=== PATIENT | male | born 1995 | race Caucasian/White ===

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

== ENCOUNTER 2017-02-26 16:48 | Emergency (ER) | payer OTHER ==
--- NOTE | 2017-02-26 17:24 | UC ---
Cardiac HPI - HPI Summary HPI Summary: Approx 4.5 hours ago bent over to clean something up, reached with his R arm, and stool up to feel sharp pain on R front chest. Pain mostly with deep breaths and certain arm/trunk movements. Denies any recent immobilization, traveling, no hx clotting disorders, denies fhx clotting disorders, no leg pain, not currently SOB. 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 Seen by Provider: 02/26/17 17:05 Hx Obtained From: Patient Onset/Duration: Sudden Onset Timing: Constant Initial Severity: Mild Current Severity: Mild Chest Pain Location: Mid Sternal Character: Tightness, Sharp/Stabbing - with palpation Aggravating: Position, Medications, Deep Breaths Alleviating: Rest Associated Signs & Symptoms: Negative: Vision Changes, Headaches, Numbness, Tingling, SOB, Swelling, Fever, Nausea/Vomiting, Palpitations, Cough, Hemoptysis - Allergy/Home Medications Allergies/Adverse Reactions: Allergies Allergy/AdvReac Type Severity Reaction Status Date / Time No Known Allergies Allergy Verified 12/29/16 09:52 PMH/Surg Hx/FS Hx/Imm Hx Cardiovascular History: Hypertension - Surgical History Surgical History: Yes Surgery Procedure, Year, and Place: T&A - Family History Known Family History: Positive: None, Other - FMH of sunburn Family History: no reported medical issues, no fhx clotting d/o - Social History Alcohol Use: None Substance Use Type: None Smoking Status (MU): Never Smoked Tobacco - Immunization History Most Recent Influenza Vaccination: 2012 Vaccination Up to Date: Yes Review of Systems Constitutional: Negative Skin: Negative Eyes: Negative ENT: Negative Respiratory: Negative Cardiovascular: Chest Pain Gastrointestinal: Negative Genitourinary: Negative Motor: Negative Neurovascular: Negative Musculoskeletal: Negative Neurological: Negative Psychological: Negative All Other Systems Reviewed And Are Negative: Yes Physical Exam Triage Information Reviewed: Yes Appearance: Well-Appearing, No Pain Distress, Obese Vital Signs: Initial Vital Signs Temp 99.7 F 02/26/17 16:49 Pulse 96 02/26/17 16:49 Resp 16 02/26/17 16:49 BP 171/100 02/26/17 16:49 Pulse Ox 100 02/26/17 16:49 Vital Signs Reviewed: Yes Eye Exam: Normal Eyes: Positive: Conjunctiva Clear ENT Exam: Normal ENT: Positive: Normal ENT inspection, Hearing grossly normal, Pharynx normal, TMs normal Dental Exam: Normal Neck exam: Normal Neck: Positive: Supple, Nontender, No Lymphadenopathy Respiratory: Positive: Lungs clear, Normal breath sounds, No respiratory distress, No accessory muscle use. Negative: Chest non-tender - R mid-sternal border TTP, no pain with indirect stress Cardiovascular: Positive: RRR - high 90s on exam, No Murmur Musculoskeletal Exam: Normal Musculoskeletal: Positive: Strength Intact, ROM Intact Neurological Exam: Normal Neurological: Positive: Alert Psychological Exam: Normal Skin Exam: Normal - Clinical Impression Provider Diagnoses: chest wall pain. elevated blood pressure Discharge - Discharge Plan Condition: Stable Disposition: HOME Prescriptions: Naproxen Sodium [Naproxen Sodium ER 500 MG TAB] 500 mg PO BID #10 tab Patient Education Materials: Chest Wall Pain (ED) Referrals: Bautista James MD [Primary Care Provider] - 2 Weeks Additional Instructions: Please see your primary care provider to discuss your blood pressure soon. If you develop worsening pain, vomiting, trouble breathing, or any other worsening in the next 24 hours, please go to the emergency department.
[2017-02-26 17:32] VITALS: BP 157/73
--- NOTE | 2017-02-26 17:42 | RAD ---
INDICATION: Inspiratory chest pain COMPARISON: None TECHNIQUE: PA and lateral views, including inspiration and expiration views, of the chest were obtained. FINDINGS: The heart and mediastinum are normal in size and contour. The lungs are grossly clear. There is no evidence of large pleural effusion or pneumothorax. Visualized bones are normal for the patient's age. There is no radiographic evidence of free air beneath the diaphragm IMPRESSION: No radiographic evidence of acute cardiopulmonary disease.
== END 2017-02-26 17:57 | disposition home or self-care (01) ==
LOC: UCEAST 16:48
DX: R07.89 Other chest pain (principal); R03.0 Elevated blood-pressure reading, without diagnosis of hypertension
CPT/HCPCS: 71020; 99212; G0463

== ENCOUNTER 2019-10-05 14:19 | Emergency (ER) | payer OTHER ==
[2019-10-05 14:48] VITALS: BP 164/91
--- NOTE | 2019-10-05 14:50 | UC ---
FLU HPI - HPI Summary HPI Summary: 24 yo male presents with LEFT ear pain and sore throat. He tells me that for the last 4 days he has had a sore throat and b/l ear pain L>R. He has been taking OTC cold medicine with no relief. He is eating, drinking, and tolerating po well - but hurts to swallow. He denies fever, chills, sinus symptoms, cough, rash. - History of Current Complaint Chief Complaint: UCRespiratory Stated Complaint: EAR PAIN, SORE THROAT Time Seen by Provider: 10/05/19 14:50 Hx Obtained From: Patient Onset/Duration: Gradual Onset Severity Currently: Moderate Severity Initially: Mild Pain Intensity: 5 Pain Scale Used: 0-10 Numeric - Allergy/Home Medications Allergies/Adverse Reactions: Allergies Allergy/AdvReac Type Severity Reaction Status Date / Time No Known Allergies Allergy Verified 12/29/16 09:52 Home Medications: Home Medications D-Methorphan/PE/Acetaminophen [Daytime Cold Multi-Symp Gelcap] 1 each PO Q12H PRN 10/05/19 [History Confirmed 10/05/19] PMH/Surg Hx/FS Hx/Imm Hx - Additional Past Medical History Additional PMH: None - Surgical History Surgical History: Yes Surgery Procedure, Year, and Place: T&A - Family History Known Family History: Positive: None - Social History Lives: With Family Alcohol Use: None Substance Use Type: None Smoking Status (MU): Never Smoked Tobacco - Immunization History Most Recent Influenza Vaccination: 2012 Vaccination Up to Date: Yes Review of Systems All Other Systems Reviewed And Are Negative: No Constitutional: Positive: Negative Skin: Positive: Negative Eyes: Positive: Negative ENT: Positive: Sore Throat, Ear Ache Respiratory: Positive: Negative Cardiovascular: Positive: Negative Gastrointestinal: Positive: Negative Neurological/Mental Status: Positive: Negative Psychological: Positive: Negative Physical Exam - Summary Physical Exam Summary: GENERAL: NAD. WDWN. No pain distress. SKIN: No rashes, sores, lesions, or open wounds. HEENT: Head: AT/NC Eyes: EOM intact. Conjunctiva clear without inflammation or discharge. Ears: Hearing grossly normal. LEFT TM with mild erythema and bulging. No canal edema or drainage. RIGHT TM WNL and intact - clear fluid behind. Nose: Nasal mucosa pink and moist. NTTP maxillary and frontal sinus. Throat: Posterior oropharynx with mild erythema. No exudates or tonsillar enlargement. Uvula midline. NECK: Supple. Nontender. No lymphadenopathy. CHEST: CTAB. No r/r/w. No accessory muscle use. Breathing comfortably and in no distress. CV: RRR. Without m/r/g. Pulses intact. NEURO: Alert. PSYCH: Age appropriate behavior. Triage Information Reviewed: Yes Vital Signs: Initial Vital Signs Temp 99.5 F 10/05/19 14:45 Pulse 94 10/05/19 14:45 Resp 18 10/05/19 14:45 BP 164/91 10/05/19 14:45 Pulse Ox 98 10/05/19 14:45 Laboratory Tests 10/05/19 14:52 Group A Strep Rapid Negative Vital Signs Reviewed: Yes Flu Course/Dx - Course Course Of Treatment: POC strep negative. Otitis media - Differential Dx/Diagnosis Provider Diagnosis: Otitis media Discharge ED - Sign-Out/Discharge Documenting (check all that apply): Patient Departure All imaging exams completed and their final reports reviewed: No Studies - Discharge Plan Condition: Stable Disposition: HOME Prescriptions: Amoxicillin PO (*) [Amoxicillin 875 MG (*)] 875 mg PO BID #14 tab Patient Education Materials: Ear Infection (ED) Referrals: Bautista James MD [Primary Care Provider] - Additional Instructions: If you develop a fever, shortness of breath, chest pain, new or worsening symptoms - please call your PCP or go to the ED immediately. Your blood pressure was high at todays visit. Please see your primary provider within 4 weeks for recheck and re-evaluation. - Billing Disposition and Condition Condition: STABLE Disposition: Home - Attestation Statements Provider Attestation: This patient was not seen by me. I was available for consult. Chart reviewed. JACKIE
== END 2019-10-05 15:05 | disposition home or self-care (01) ==
LOC: UCEAST 14:19
DX: H66.92 Otitis media, unspecified, left ear (principal)
CPT/HCPCS: 87651; 99212; G0463